=== PATIENT | female | born 1955 | race Caucasian/White ===

== ENCOUNTER 2019-03-13 06:49 | Outpatient (CLI) | payer MEDICAID, MEDICARE | END 2019-03-13 23:59 | disposition home or self-care (01) | LOC: CFH 06:49 | PROVIDERS: ATTEND Internal Medicine Cardiovascular Disease | DX: I08.3 Combined rheumatic disorders of mitral, aortic and tricuspid valves (principal); I25.10 Atherosclerotic heart disease of native coronary artery without angina pectoris; I10 Essential (primary) hypertension | CPT/HCPCS: 78452; 93017; 93306; A9502; J2785 ==